=== PATIENT | female | born 1950 | race Caucasian/White ===

== ENCOUNTER 2017-05-26 10:10 | Emergency (ER) | payer OTHER ==
[~2017-05-26] VITALS: Ht 154.9 cm; Wt 83.0 kg
[2017-05-26 10:15] VITALS: Ht 154.9 cm; Wt 83.0 kg
[2017-05-26 10:55] VITALS: BP 125/77
== END 2017-05-26 10:55 | disposition home or self-care (01) ==
LOC: ED 10:10
DX: M54.5 Low back pain (principal); M19.90 Unspecified osteoarthritis, unspecified site

== ENCOUNTER 2017-06-18 11:53 | Emergency (ER) | payer OTHER ==
[~2017-06-18] VITALS: Ht 152.4 cm; Wt 81.6 kg
[2017-06-18 12:02] VITALS: Ht 152.4 cm; Wt 81.6 kg
[2017-06-18 13:23] VITALS: BP 117/77
== END 2017-06-18 14:35 | disposition home or self-care (01) ==
LOC: ED 11:53
DX: S39.012A Strain of muscle, fascia and tendon of lower back, initial encounter (principal); S76.012A Strain of muscle, fascia and tendon of left hip, initial encounter; M19.90 Unspecified osteoarthritis, unspecified site; X58.XXXA Exposure to other specified factors, initial encounter; Y93.89 Activity, other specified; Y92.89 Other specified places as the place of occurrence of the external cause; Y99.8 Other external cause status
CPT/HCPCS: Q0092